=== PATIENT | female | born 1965 | race Caucasian/White ===

== ENCOUNTER 2016-08-07 21:25 | Emergency (ER) | payer OTHER ==
[2016-08-08 00:16] LABS: HEMOGLOBIN 13.8 gm/dl (12.3-15.3); RED BLOOD COUNT 4.45 M/UL (4.00-5.10); WHITE BLOOD COUNT 13.5 K/UL (4.5-11.0)
== END 2016-08-08 06:40 | disposition home or self-care (01) ==
LOC: ER1 21:25
PROVIDERS: Family Medicine
DX: I82.411 Acute embolism and thrombosis of right femoral vein (principal); I82.431 Acute embolism and thrombosis of right popliteal vein; L03.115 Cellulitis of right lower limb; R00.0 Tachycardia, unspecified; F17.200 Nicotine dependence, unspecified, uncomplicated; Z95.5 Presence of coronary angioplasty implant and graft
CPT/HCPCS: 36415; 71020; 80053; 81001; 85025; 85379; 87040; 87086; 93005; 93926; 93971; 94664; 96365; 96372; 99284; J0690; J1650; J7030; J7050

== ENCOUNTER 2020-12-08 16:19 | Emergency (ER) | payer OTHER ==
[~2020-12-08 16:19] MED LIST: CLARITIN10 MG PO; FLONASE 0.05% N16 GM; LORTAB 7.5-3251 EACH PO; OMEPRAZOLE20 MG PO; OMNICEF 300 MG300 MG PO; SEROQUEL100 MG PO; SINGULAIR10 MG PO; SYMBICORT 160-1 INHA INH; THEO-DUR 300 M300 MG PO; VENTOLIN HFA 66.7 GM INH; XARELTO10 MG PO
[2020-12-08 17:06] LABS: HEMOGLOBIN 13.9 gm/dl (12.3-15.3); RED BLOOD COUNT 4.11 M/UL (4.00-5.10)
[2020-12-08 17:40] LABS: BUN/CREATININE RATIO 8 (0-10)
[2020-12-10 16:06] LABS: WHITE BLOOD COUNT 15.2 K/UL (4.5-11.0)
== END 2020-12-08 21:30 | disposition home or self-care (01) ==
LOC: ER1 16:19
PROVIDERS: Physician Assistant
DX: I70.203 Unspecified atherosclerosis of native arteries of extremities, bilateral legs (principal); J44.9 Chronic obstructive pulmonary disease, unspecified; Z86.718 Personal history of other venous thrombosis and embolism; F17.200 Nicotine dependence, unspecified, uncomplicated; Z79.01 Long term (current) use of anticoagulants; Z20.822 Contact with and (suspected) exposure to COVID-19
CPT/HCPCS: 71045; 73630; 80053; 82550; 82553; 83605; 83874; 84484; 85025; 85610; 85730; 87040; 93005; 93925; 93971; 96374; 96375; 99284; J2270; J2405; Q9967; U0002